=== PATIENT | male | born 1955 | race Caucasian/White ===

== ENCOUNTER 2017-01-11 21:30 | Inpatient (IN) | payer OTHER ==
[~2017-01-11] VITALS: Ht 167.6 cm; Wt 104.0 kg
--- NOTE | 2017-01-11 21:35 | NUR ---
PT BIBA FOR PSYCH EVAL. PT DROVE HIMSELF TO [facility] AND ASKED TO BE TAKEN TO HOSPITAL FOR PSYCH EVAL. PER PEER, PT HELD A KNIFE TO SELF AND SAID HE WANTED TO "END IT ALL". PER PT, HE HAD AN ARGUMENT WITH HIS SISTER EARLIER ETELVINA AND PT SAID HE WAS "TIRED OF LIVING LIKE THIS". PT REPORTS MOVING TO [place] FROM [place] IN FEBRUARY 2016 TO HELP CARE FOR HIS MOTHER AND SISTER. PER PT, MOTHER HAS DEMENTIA AND SISTER IS DISABLED AND HAS NOT BEEN ABLE TO WORK IN 5 YEARS. PT DENIES HI/AH/VH. PT DENIES USING ANY ETOH OR DRUGS.
--- NOTE | 2017-01-11 21:36 | NUR ---
SECURITY AT BEDSIDE FOR WANDING PT CHANGED INTO BLUE SCRUBS
--- NOTE | 2017-01-11 21:40 | NUR ---
DR RYAN AT BEDSIDE
--- NOTE | 2017-01-11 21:41 | NUR ---
PT SHOWED THIS RN AND DR RYAN HIS RIGHT GREAT TOE, WHICH PT STATES "WAS INGROWN THEN I STUBBED IT". PT REPORTS THIS CAUSES HIM PAIN. PT HAS APPOINTMENT TO SEE ASSET MANAGEMENT ANALYST ON FRIDAY.
--- NOTE | 2017-01-11 21:48 | ED PSYCHIATRIC COMPLAINT ---
History of Present Illness General Chief Complaint: Psychiatric Related Complaint Stated Complaint: PSYCH EVAL Source: patient, EMS, police Exam Limitations: no limitations Vital Signs & Intake/Output Vital Signs & Intake/Output Vital Signs Date Time Temp Pulse Resp B/P Pulse O2 O2 Flow FiO2 Ox Delivery Rate 01/12 0828 97.8 82 20 160/89 98 Room Air 01/12 0607 97.7 82 18 161/94 95 Room Air 01/12 0405 97.8 84 18 135/71 96 Room Air 01/12 0347 Room Air 01/11 2317 98.7 100 18 162/89 96 Room Air 01/11 2219 Room Air 01/11 2133 98.2 116 16 157/98 95 Room Air Reconcile Medications Diclofenac Sodium 75 MG TABLET.DR 1 TAB PO BID PAIN (Reported) Lisinopril/Hydrochlorothiazide (Lisinopril-Hctz 10-12.5 MG Tab) 10 MG-12.5 MG TABLET 1 TAB PO DAILY HIGH BLOOD PRESSURE (Reported) Simvastatin (Simvastatin*) 40 MG TABLET 1 TAB PO QPM HYPERCHOLESTEROLEMIA ( Reported) Triage Nurses Notes Reviewed? yes HPI: Patient presents for evaluation of depression and suicide ideation and feeling overwhelmed. The patient states that he moved from [place] to help his sister and his mother. He states that his sister has been simply. She tends to be confrontational and a bit excitable. Patient states that today she was looking for a photo of the [facility] building and he was trying to help her. Unfortunately he scrolled past the photo she was looking for and she became irate. He spoke under his breath which escalated the situation. He now feels that he cannot deal with his situation any longer. According to the police report he held a knife to his chest and claimed he wanted to find a bridge to jump off. He denies any alcohol or drug use. (SHELBY TYLER,CLIFFORD Cárdenas) Allergies Uncoded Allergies: DUST MITE (UNKNOWN 01/12/17) (LAXMI TYLER,DAV Kauffman) Past History Medical History Any Pertinent Medical History? see below for history Surgical History Surgical History: non-contributory Family History Hx Contributory? No (CLIFFORD RYAN MD) Review of Systems Review of Systems Constitutional: Reports: no symptoms. EENTM: Reports: no symptoms. Respiratory: Reports: no symptoms. Cardiovascular: Reports: no symptoms. GI: Reports: no symptoms. Genitourinary: Reports: no symptoms. Musculoskeletal: Reports: no symptoms. Skin: Reports: no symptoms. Neurological/Psychological: Reports: see HPI. Hematologic/Endocrine: Reports: no symptoms. Immunologic/Allergic: Reports: no symptoms. All Other Systems: Reviewed and Negative (CLIFFORD RYAN MD) Physical Exam Physical Exam General Appearance: see below Neurological/Psychiatric: see below Comments: General: Alert, calm, cooperative Head: Normocephalic, atraumatic Eyes: Normal inspection, no nystagmus, EOMI Ears: Normal inspection Nose: Normal inspection Throat: Moist mucosa Neck: Supple, no goiter Heart: Regular rate and rhythm, no murmurs rubs or gallops Lungs: Clear to auscultation bilaterally with good air entry Abdomen: Soft nontender nondistended, normal bowel sounds Chest: Nontender Extremities: Normal range of motion grossly, no tremors present, no cyanosis clubbing or edema of the upper extremities Neurologic: cranial nerves II through XII grossly intact, speech clear, gait normal Psychiatric: No apparent delusions or hallucinations, no pressured speech or thought blocking, depressed affect SAD PERSONS Done? DEFERRED TO CRISIS (SHELBY TYLER,CLIFFORD Cárdenas) Progress Differential Diagnosis: depression, suicide ideation Plan of Care: Orders Procedure Date/time Status Heart Healthy Diet 01/12 B Active Continuous Observation Monitor 01/11 2203 Active URINE DRUG SCREEN FOR ER ONLY 01/11 2203 Complete ED CRISIS PSYCH CONSULT 01/11 2202 Active Laboratory Tests 01/11/17 2200: Urine Opiates Screen < 100.00, Methadone Screen < 40, Barbiturate Screen < 60, Ur Phencyclidine Scrn < 6.00, Amphetamines Screen < 100, U Benzodiazepines Scrn < 85, Urine Cocaine Screen < 50, Urine Cannabis Screen < 5.00 Comments: 01/12/2017 7:29:56 AM patient signed out to Dr. Marquez after an uneventful emergency department stay overnight. (SHELBY TYLER,CLIFFORD Cárdenas) Departure Departure Condition: Stable Referrals: PATIENT HAS NO PRIMARY CARE DR (PCP/Family) Departure Forms: Customer Survey General Discharge Information (CLIFFORD RYAN MD) Departure Disposition: STILL A PATIENT Clinical Impression Primary Impression: Depression Psych Admission Note Psychiatric Admission: I have seen and evaluated HERNANDEZDREA NEGRO. I have also reviewed all the pertinent lab results and diagnostic results. DREA HERNANDEZ will be admitted to our inpatient Psychiatric unit for treatment and care. (LAXMI TYLER,DAV Kauffman)
--- NOTE | 2017-01-11 22:16 | NUR ---
URINE TRIO SENT TO LAB
[2017-01-11] MEDS ORDERED: SIMVASTATIN40 M1 PO (22:17)
[2017-01-11] MEDS ORDERED: LISINOPRIL-HCT1 EAC2 PO (22:18)
[2017-01-11] MEDS ORDERED: DICLOFENAC SODI75 M2 PO (22:19)
--- NOTE | 2017-01-11 22:42 | ED PSY CRISIS COLLATERAL NOTE ---
Collateral Note Collateral Note Family/Inform/Venkatesh Contacts: Crisis spoke to patient's sister Aga Mclean ([phone]). Sister reports that patient is depressed. She reports pt was living in [place], [place] for 25 years and recently moved back in February 2016. Sister recalls that when pt first moved out to [place] that he witnessed someone jump of a railing in the mall and kill him/herself. Sister recalls pt telilng their mother that maybe this is how I should . Sister believes pt has been depressed for 25 years. She reports patient is jaam and he thought his mother didn't accept this which is why he had SI 25 years ago. Sister explained that while growing up and to this day, he is sensitve to sound and often precieves situations differently than others. For example, pierce when she asked him to show her a picture of the [facility] on his Ipad, when he passed a picture she wanted to see she asked him to go back. She reports pt accused her of yelling at him, stormed off, slammed doors and locked himself in the laundry room. She reports when she got in to the laundry room he had a software asset management analyst's knife pointed at his stomach and she was fearful he was going to stab himself. Sister reports pt then left her home in his car speeding off. She reports she called multiple people trying to find him. She reports one person she spoke to told her that the pt confided in her that he had called the suicide hotline number a week ago. Sister reports pt finally answered his cell phone and told her that he was at the police station. Sister reports she called the police station and explained what happened and they called for an ambulance for him to be evaluated in the ED. Sister is very worried for him. She believes he needs to be admitted as he has never acted on his SI. Sister reports she thinks he may have had a psychiatrist in [place] because when she suggested he go see a psychiatrist prior to pierce's incident he said somethign to the effect of "they dont' help". Sister shared that she has many medical issues right now (tumor/ malabsorption, hx of cdiff, lost 90 pounds in 10 months) and that their mother has dementia. Sister underscored that patient struggles with change, is sensitive to noise, needs to finish he thoughts and hates when people interupt him, and gives orders about how things "should" be done.She reports he does attend yazdanism regulary and has a few friends he talks to. He has not worked since he moved back to [place] and she believes his also impacts his mood. Sister is worried for pt. Sister believes pt would benefit from inpatient hospitalization. Sister would like a call back in the morning.
--- NOTE | 2017-01-11 22:48 | NUR ---
Crisis spoke to pt sister. See collateral notes
--- NOTE | 2017-01-11 22:49 | NUR ---
Crisis informed pt that he would not be evaluated until the morning multifocal lens inspector came in. Pt requested that the lights be left on at all time. Pt requested something to help him sleep as he reports he will be up all night crying and will be uncomfortable on the bed in the ED. Pt informed sitter of request regarding light and will communicate his request about medication to MD.
--- NOTE | 2017-01-11 23:01 | NUR ---
PT MEDICATED WITH AMBIEN 5MG FOR SLEEP. PT REQUESTS THAT THE LIGHTS REMAIN ON. PT CALM AND COOPERATIVE. TEARFUL.
--- NOTE | 2017-01-11 23:17 | NUR ---
RECIEVED REPORT FROM HERMINIO CLAYTON. PT SITTING ON STRETCHER IN ROOM WITH LIGHTS ON PER REQUEST. DENIES ANY NEEDS AT THIS TIME. SITTER IN DOORWAY.
--- NOTE | 2017-01-12 01:22 | NUR ---
PT SLEEPING WITH REGULAR RR AND LIGHTS REMAIN ON IN ROOM PER PT REQUEST. SITTER IN DOORWAY.
--- NOTE | 2017-01-12 02:30 | NUR ---
PT SITTING AWAKE ON STRETCHER. PROVIDED WITH WATER. SITTER IN DOORWAY.
--- NOTE | 2017-01-12 04:02 | NUR ---
PT REMAINS LYING ON STRETCHER AWAKE. STATES "I HAVEN'T SLEPT MUCH IN 10 WEEKS WITH ALL THE STRESS GOING ON." ASKED PT IF HE WOULD LIKE AN EXTRA BLANKET AND THE LIGHTS TURNED OFF FOR COMFORT. PT WISHES FOR LIGHTS TO REMAIN ON AND SO THEY ARE. PT DENIES ANY OTHER NEEDS AT THIS TIME. VSS. SITTER REMAINS IN DOORWAY. WILL CTM.
--- NOTE | 2017-01-12 05:22 | NUR ---
PT CONTINUES TO LAY ON STRETCHER AWAKE. CALM AND COOPERATIVE. DENIES ANY NEEDS. SITTER IN DOORWAY.
--- NOTE | 2017-01-12 07:35 | NUR ---
ASSUMED CARE OF PT AT THIS TIME. PT STATING THAT HE NEEDS HIS METAMUCIL AND VOLTARAN FOR THE PAIN IN HIS HANDS. MD AWARE.
--- NOTE | 2017-01-12 08:08 | NUR ---
[facility]ITA CALLED FOR MEDS AT THIS TIME. CRISIS AT BEDSIDE FOR GILAL
--- NOTE | 2017-01-12 08:25 | NUR ---
PT MEDICATED PER EMAR AT THISTIME.
--- NOTE | 2017-01-12 09:46 | ED PSYCH CRISIS CONSULTATION ---
Crisis Consult Basic Assessment Date of Consult: 01/12/17 Responsible Person/Accompanied By: self Insurance Authorization: Insurance #1: Insurance name: JORGE FELIPE Phone number: Policy number: [id number] Group number: Authorization number: ED Provider: Patient's ED Provider: CLIFFORD RYAN MD Primary Care Physician: Patient's PCP: PATIENT HAS NO PRIMARY CARE DR PCP's Phone Number: Chief Complaint: Psychiatric Related Complaint Patient's Quote: "I want to kill myself, I cannot go on like this anymore." Present Illness: The pt is a 61yo single male BIBA from the [place] police dept for SI. The pt drove himself to the police dept after arguing with his sister and holding a knife to his chest. The PEER documents the pt stated to the police he wanted to end it all and find a bridge to jump off. During this assessment the pt presented tearful, alert, oriented, and cooperative with goal directed speech. The pt reports I want to kill myself, I cannot go on like this anymore. The pt also stated my father is the osorio one. The pt stated that after an argument with his sister he thought of suicide and held a knife to his stomach. The pt reports he dropped the knife and drove to the police station for help. The pt stated he has numerous stressors and no support. The pt denies HI, AH, VH and paranoia. The pt stated he experienced thoughts of suicide in the past but never acted on those thoughts. The pt stated significant deaths in the family have triggerred past SI. The pt reports difficulty sleeping over the past 10 months and that he sleeps about 6 hours per night. The pt reports a decrease in appetite when he is stressed. The pt denies any drug and alcohol use, his toxicology screen is negative. The pt denies any prior psychiatric hospitalizations. The pt reports his only outpatient treatment was 6 sessions through [facility] in 2000 after his cousins . The pt reports he lived in [place] for 25 years and moved back to [place] 02/2016 to help his sister and mother. The pt reports he lives in his own apartment about 1 mile from his sister and mother. The pt reports his mother has dementia and his sister has numerous disabling conditions. 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 The pt reports he is helpful to his mother but his sister is verbally abusive to him. The pt reports his father in [place] 11/2016. The pt reports since he was born in [place] he moved to the following places: [place], [place], [place], back to [place], [place], [facility] and then [place] for 25 years. The Crisis Collateral note (see collateral 01/11/17 Collateral note)documents a phone call to the pts sister who stated that during an argument with the sister the pt locked himself in the laundry room. The sister entered the laundry room and saw the pt holding a knife pointed at his stomach. Sister reports she was fearful the pt was going to stab himself. Sister reports pt then left her home in his car speeding off. Discussed the pts presentation with Dr. Stern, the plan is for hospitalization. The pt is in agreement with this plan, is a voluntary admission and signed the [facility] Pt Guidelines. Patient's Address: [address] [place] [address] Other Phone Number: Who Do You Live With? Patient/Self Family/Informants Interviewed: Crisis spoke by phone with the pt's sister, see collateral note. Allergies - Uncoded Allergies: DUST MITE (UNKNOWN 01/12/17) Current Medications - Scheduled Medications Diclofenac Sodium 75 MG TABLET. 1 TAB PO BID PAIN #30 (Reported) Entered as Reported by TAYLOR ALDRIDGE on 01/11/17 221 Lisinopril/Hydrochlorothiazide (Lisinopril-Hctz 10-12.5 MG Tab) 10 MG-12.5 MG TABLET 1 TAB PO DAILY HIGH BLOOD PRESSURE #30 (Reported) Entered as Reported by TAYLOR ALDRIDGE on 01/11/17 221 Simvastatin (Simvastatin*) 40 MG TABLET 1 TAB PO QPM HYPERCHOLESTEROLEMIA #30 (Reported) Entered as Reported by TAYLOR ALDRIDGE on 01/11/17 221 Laboratory Results: Laboratory Tests 01/11/170: Urine Opiates Screen < 100.00, Methadone Screen < 40, Barbiturate Screen < 60, Ur Phencyclidine Scrn < 6.00, Amphetamines Screen < 100, U Benzodiazepines Scrn < 85, Urine Cocaine Screen < 50, Urine Cannabis Screen < 5.00 Past History Past Medical History Neurological: NONE EENT: NONE Cardiovascular: HYPERTENSION HYPERLIPIDEMIA Respiratory: NONE Gastrointestinal: NONE Hepatic: NONE Renal: NONE Musculoskeletal: NONE Psychiatric: NONE Endocrine: PSORIASIS Past Surgical History Surgical History: non-contributory Psychosocial History Strengths/Capabilities: able to articulate needs, prior periods of minimal mood related problems. Physical Limitations (Interventions): psoriatic arthiritis Psychiatric Treatment History Psych Treatment Psychiatric Treatment Yes Inpatient Treatment No Outpatient Treatment Yes Location of Treatment [facility] in [place] Reason for Treatment grief over of cousin Dates of Treatment 6 sessions in 2000 Response to Treatment pt reports positive response Diagnosis by History: n/a Substance Use/Abuse History Drug Use/Abuse Substances Used/Abused No Substance Abuse Treatment Substance Abuse Treatment Past Substance Abuse [place] No Current Mental Status Mental Status Orientation: Person, Place, Situation Affect: Anxious, Sad Speech: WNL Neuro-vegetative: Loss of Interest, Sleep Disturbance Appearance Appearance- Dress/Hygiene: appropriate Behaviors Thought Process: WNL Thought Content: WNL Memory: WNL Insight: Fair SI/HI Risk Assessment Past Suicidal Ideation/Attempts Yes Current Suicidal Ideation/Att Yes Past Homicidal Ideation/Att: No Current Homicidal Ideation/Attempts No Degree of Intent: Made Preparations, Plan Danger To: Self Risk Factors: access to lethal means, high anxiety/distress, isolate/no social support, lack of outcome concern, lives alone, male Lethality Ratin PTSD Checklist PTSD Done? patient declined ED Management Sitter: Yes Restraints: No DSM5/PS Stressors/Medical Prob Diagnosis' (DSM 5, Stressors, Medical): F32.9 Unspecified Depressive Disorder Psoriasis Psoriatic Arthritis Current GAF: 28 Departure Disposition Psych Medical Clearance Date: 01/12/17 Medically Cleared at: 0800 Time Started: 0800 Time Ended: 0835 Psychiatrist Consulted: Dr. Stern Date Disposition Established: 01/12/17 Time Disposition Established: 929 Plan for Disposition - Modality: Inpatient Psychiatry Facility: Rationale for Disposition: Pt is in need of hospitalization for safety. Type of IP Admission: Voluntary Referrals PATIENT HAS NO PRIMARY CARE DR (PCP/Family)
--- NOTE | 2017-01-12 09:49 | NUR ---
CRISIS AT BEDSIDE AT THIS TIME
--- NOTE | 2017-01-12 10:18 | IP CRISIS DIAG ASSESS PSYCH ---
See Addendum Diagnostic Assessment Basic Assessment Insurance Authorization: Insurance #1: Insurance name: JORGE FELIPE Phone number: Policy number: [id number] Group number: Authorization number: Primary Care Physician: Patient's PCP: PATIENT HAS NO PRIMARY CARE DR PCP's Phone Number: Patient's Quote: "I want to kill myself, I cannot go onlike this anymore." Present Illness: The pt is a 61yo single male BIBA from the [place] police dept for SI. The pt drove himself to the police dept after arguing with his sister and holding a knife to his chest. The PEER documents the pt stated to the police he wanted to end it all and find a bridge to jump off. During this assessment the pt presented tearful, alert, oriented, and cooperative with goal directed speech. The pt reports I want to kill myself, I cannot go on like this anymore. The pt also stated my father is the osorio one. The pt stated that after an argument with his sister he thought of suicide and held a knife to his stomach. The pt reports he dropped the knife and drove to the police station for help. The pt stated he has numerous stressors and no support. The pt denies HI, AH, VH and paranoia. The pt stated he experienced thoughts of suicide in the past but never acted on those thoughts. The pt stated significant deaths in the family have triggerred past SI. The pt reports difficulty sleeping over the past 10 months and that he sleeps about 6 hours per night. The pt reports a decrease in appetite when he is stressed. The pt denies any drug and alcohol use, his toxicology screen is negative. The pt denies any prior psychiatric hospitalizations. The pt reports his only outpatient treatment was 6 sessions through [facility] in 2000 after his cousins . The pt reports he lived in [place] for 25 years and moved back to [place] 02/2016 to help his sister and mother. The pt reports he lives in his own apartment about 1 mile from his sister and mother. The pt reports his mother has dementia and his sister has numerous disabling conditions. 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 The pt reports he is helpful to his mother but his sister is verbally abusive to him. The pt reports his father in [place] 11/2016. The pt reports since he was born in [place] he moved to the following places: [place], [place], [place], back to [place], [place], [facility] and then [place] for 25 years. The Crisis Collateral note (see collateral 01/11/17 Collateral note)documents a phone call to the pts sister who stated that during an argument with the sister the pt locked himself in the laundry room. The sister entered the laundry room and saw the pt holding a knife pointed at his stomach. Sister reports she was fearful the pt was going to stab himself. Sister reports pt then left her home in his car speeding off. Discussed the pts presentation with Dr. Stern, the plan is for hospitalization. The pt is in agreement with this plan, is a voluntary admission and signed the [facility] Pt Guidelines. Patient's Address: [address] [place] [address] [address] [place] [address] Other Phone Number: Who Do You Live With? Patient/Self Feel Safe Where You Live? Yes Marital Status: single Do You Have Children? No Primary Language? Dutch Language(s) Spoken At Home: Dutch Family/Informants Interviewed: Crisis spoke by phone with the pt's sister, see collateral note. Allergies - Uncoded Allergies: DUST MITE (UNKNOWN 01/12/17) Current Medications - Scheduled Medications Diclofenac Sodium 75 MG TABLET. 1 TAB PO BID PAIN #30 (Reported) Entered as Reported by TAYLOR ALDRIDGE on 01/11/17 221 Lisinopril/Hydrochlorothiazide (Lisinopril-Hctz 10-12.5 MG Tab) 10 MG-12.5 MG TABLET 1 TAB PO DAILY HIGH BLOOD PRESSURE #30 (Reported) Entered as Reported by TAYLOR ALDRIDGE on 01/11/17 221 Simvastatin (Simvastatin*) 40 MG TABLET 1 TAB PO QPM HYPERCHOLESTEROLEMIA #30 (Reported) Entered as Reported by TAYLOR ALDRIDGE on 01/11/172216 Consequences of Psych Med Use: n/a Lab Results: Laboratory Tests 01/11/17 2200: Urine Opiates Screen < 100.00, Methadone Screen < 40, Barbiturate Screen < 60, Ur Phencyclidine Scrn < 6.00, Amphetamines Screen < 100, U Benzodiazepines Scrn < 85, Urine Cocaine Screen < 50, Urine Cannabis Screen < 5.00 Toxicology Screen Completed? Yes Results: negative Symptoms of Use: n/a Past History Past Medical History Medical History: psoriasis, psoriatic arthiritis Past Surgical History Surgical History none Abuse/Trauma History Trauma History/Current Trauma: Denies History of Trauma/Abuse Treatment? No Abuse/Trauma Treatment: n/a Legal History Current Legal Status: none Have you ever been arrested? No Number of Arrests: 0 Psychosocial History Strengths/Capabilities: able to articulate needs, prior periods of minimal mood related problems. Physical Limitations (Interventions): psoriatic arthiritis Psychiatric Treatment History Psych Treatment Psychiatric Treatment Yes Inpatient Treatment No Outpatient Treatment Yes Location of Treatment [facility] in [place] Reason for Treatment grief over of cousin Dates of Treatment 6 sessions in 2000 Response to Treatment pt reports positive response Diagnosis by History: n/a Risk Factors: access to lethal means, high anxiety/distress, isolate/no social support, lack of outcome concern, lives alone, male Substance Use/Abuse History Drug Use/Abuse minimum 12mo Hx Substances Used/Abused No Substance Abuse Treatment Substance Abuse Treatment Past Substance Abuse [place] No Education History Highest Level of Education: bachelor's degree Preferred Learning Style: visual, auditory Current Mental Status Mental Status Orientation: Person, Place, Situation Affect: Anxious, Sad Speech: WNL Neuro-vegetative: Loss of Interest, Sleep Disturbance Appearance Appearance- Dress/Hygiene: appropriate Behaviors Thought Process: WNL Thought Content: WNL Memory: WNL Insight: Fair SI/HI Risk Assessment - Minimum 6mo History- Past Suicidal Ideation/Attempts Yes Current Suicidal Ideation/Att Yes Past Homicidal Ideation/Att: No Current Homicidal Ideation/Attempts No Degree of Intent: Made Preparations, Plan Danger To: Self Risk Factors: access to lethal means, high anxiety/distress, isolate/no social support, lack of outcome concern, lives alone, male Lethality Ratin Needs/Init TX Plan/Goals: Monitor mental status and safety. Participate in individual, group and milieu therapy. Participate in medication evaluation. AUDIT-C Questionnaire: AUDIT-C Questionnaire: Response Value ETOH use in the past year Never 0 Total 0 DSM5/PS Stressors/Medical Prob Diagnosis' (DSM 5, Stressors, Medical): F32.9 Unspecified Depressive Disorder Psoriasis Psoriatic Arthritis Current GAF: 28
--- NOTE | 2017-01-12 10:25 | NUR ---
CPS RN WILL CALL BACK FOR REPORT.
--- NOTE | 2017-01-12 10:40 | NUR ---
REPORT GIVEN TO STACIE DURHAM IN CPS. INFORMED PT HAS 1 VALUABLES BAG WITH SECURITY, 1 VALUABLES BAG SENT WITH HIM TO CPS AND 2 BELONGINGS BAGS.
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
[2017-01-12 12:15] VITALS: BP 154/92
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
[2017-01-12 16:27] VITALS: BP 153/90
--- NOTE | 2017-01-12 16:58 | History & Physical ---
General Information and HPI History of Present Illness: Patient is a 61-year-old male with medical history significant for hypertension, dyslipidemia and psoriasis. He moved to [place] from [place] to be with family. However due to stress from family he feels like he is unable to cope and came to seek help. He reports that a few days ago he stumped his right big toe. He reports some pain at the site. He reports that his plan was to see the health science writer as an outpatient. Denies chest pain or shortness of breath. Denies palpitations. Denies cough. Denies nausea vomiting. Denies diarrhea. Denies abdominal pain. Denies black or bloody stools. Denies heat or cold intolerance. All other 12 point review of systems noncontributory except as reported above. Allergies/Medications Allergies: Uncoded Allergies: DUST MITE (UNKNOWN 01/12/17) Home Med list Aripiprazole (Abilify) 5 MG TABLET 5 MG PO 2000 mood stability/clear thoughts Take 1 tablet by mouth every night. Atorvastatin Calcium 40 MG TABLET 1 TAB PO 1700 High cholesterol Take 1 tablet by mouth every night. Clobetasol Propionate (Temovate) 0.05 % CREAM..G. 1 SUZY TOP BID rash apply to affected area(s) Diclofenac Sodium 75 MG TABLET.DR 75 MG PO 0800,2000 Pain Take 1 tablet by mouth twice daily. Fluoxetine HCl 10 MG CAPSULE 10 MG PO DAILY depression/anxiety Take 1 capsule by mouth every morning. Fluticasone Propionate 50 MCG/ACTUATION SPRAY.SUSP 2 SPRAY WIL 0800 allergies Take 2 sprays insufflation daily. Hydrochlorothiazide 12.5 MG CAPSULE 12.5 MG PO 0800 HIGH BLOOD PRESSURE Take 1 capsule by mouth daily. Hydrocortisone 1 % CREAM..G. 1 SUZY TOP BID rash APPLY BID TO RASH (PSORIASIS) Lisinopril 10 MG TABLET 10 MG PO 0800 HIGH BLOOD PRESSURE Take 1 tablet by mouth daily. Psyllium Hydrophy Sugar Free (Metamucil Fiber Singles Packet) 3.4 GRAM POWD.PACK 1 PAC PO QPM bowel support Past History Travel History Traveled to [place] past 21 day No Medical History Blood Transfusion Hx: No Neurological: NONE EENT: NONE Cardiovascular: HYPERTENSION HYPERLIPIDEMIA Respiratory: NONE Gastrointestinal: NONE Hepatic: NONE Renal: NONE Musculoskeletal: NONE Psychiatric: depression Endocrine: PSORIASIS History of MRSA: No History of VRE: No History of CDIFF: No Isolation History: Standard Influenza Vaccine: 08/17/16 Surgical History Surgical History: lithotripsy. Sinus surgery. Past Family/Social History Family History Relations & Conditions if any SISTER Relation not specified for: FHx: coronary artery disease FHx: diabetes mellitus Stroke Psychosocial History Where do you live? Home Review of Systems Review of Systems Constitutional: Denies: see HPI. Exam & Diagnostic Data Last 24 Hrs of Vital Signs/I&O Vital Signs Date Time Temp Pulse Resp B/P Pulse O2 O2 Flow FiO2 Ox Delivery Rate 01/12 1627 89 153/90 01/12 1215 96.7 86 154/92 01/12 1012 97.8 87 20 160/88 97 Room Air 01/12 0828 97.8 82 20 160/89 98 Room Air 01/12 0607 97.7 82 18 161/94 95 Room Air 01/12 0405 97.8 84 18 135/71 96 Room Air 01/12 0347 Room Air 01/11 2317 98.7 100 18 162/89 96 Room Air 01/11 2219 Room Air 01/11 2133 98.2 116 16 157/98 95 Room Air Intake & Output 01/12 1600 01/12 0800 01/12 0000 Intake Total Output Total Balance Patient 104.043 kg Weight Physical Exam General Appearance Alert, Oriented X3, Cooperative Skin No Rashes, No Breakdown HEENT Atraumatic, PERRLA, EOMI, Mucous Membr. moist/pink Neck Supple, No JVD, No thryomegaly, +2 Carotid Pulse wo Bruit Cardiovascular Regular Rate, Normal S1, Normal S2, No Murmurs Lungs Clear to Auscultation, Normal Air Movement Abdomen Normal Bowel Sounds, Soft, No Tenderness, No Hepatospenomegaly Neurological Exam Findings: Normal Gait, Normal Speech, Strength at 5/5 X4 Ext, Cranial Nerves 3-12 NL Cranial Nerves II through XII: WNL Extremities No Clubbing, mild inflammation right big toe. Mild tenderness. No erythema. No discharge. No open areas. Last 24 Hrs of Labs/David: Laboratory Tests 01/11/17 2200: Urine Opiates Screen < 100.00, Methadone Screen < 40, Barbiturate Screen < 60, Ur Phencyclidine Scrn < 6.00, Amphetamines Screen < 100, U Benzodiazepines Scrn < 85, Urine Cocaine Screen < 50, Urine Cannabis Screen < 5.00 Assessment/Plan Assessment: Problems: Depression. Right big toe trauma. Hypertension. Dyslipidemia. Recommendations: -Continue his routine blood pressure and cholesterol medications. -Recommend evaluation of his toe by the podiatry service. - As Ranked By This Provider Problem List: 1. Depression Miscellaneous Miscellaneous Documentation Attending Case Discussed With: RUDI TYLER,SHA Chu Primary Care Physician: PATIENT HAS NO PRIMARY CARE DR Patient sees these Specialists None. Level of Patient Care: Piyush Consults Needed: Consulting Specialty: Podiatry
[2017-01-12 19:52] VITALS: BP 149/92
--- NOTE | 2017-01-12 22:52 | NUR ---
PT IS COOPERATVIE WITH STAFF AND PEERS, ISOLATIVE AND WITHDRAWN, SPENDING THE VAST MAJORITY OF TIME IN PT ROOM, OUT OF MILIEU. PT MOOD IS STABLE, AFFECT IS CONSTRICTED, SEEMS ANXIOUS, PRESENTS PARANOID AND DELUSIONAL. PT COMMUNICATION IS NORMAL, THOUGH SPARSE, AND APPETITE IS NORMAL. PT DENIES SI AT THIS TIME.
--- NOTE | 2017-01-13 04:50 | NUR ---
SLEPT ON AND OFF.
[2017-01-13 07:39] VITALS: BP 148/97
[2017-01-13 08:00] LABS: ABSOLUTE BASOPHIL COUNT 0 /CUMM (0.0-0.2); ABSOLUTE EOSINOPHIL COUNT 0.1 /CUMM (0.0-0.7); ABSOLUTE GRANULOCYTE CT 5.9 /CUMM (1.4-6.5); ABSOLUTE LYMPH COUNT 1.4 /CUMM (1.2-3.4); ABSOLUTE MONOCYTE COUNT 0.6 /CUMM (0.10-0.60); BASOPHIL % 0.4 % (0.0-2.0); EOSINOPHIL % 1.7 % (0-5); GRANULOCYTE % 73.6 % (42.2-75.2); HEMATOCRIT 44.1 % (42-52); MEAN CORPUSCULAR HGB 29.1 PG (27.0-31.0); MEAN CORPUSCULAR HGB CONC 33.2 G/DL (33.0-37.0); MEAN CORPUSCULAR VOLUME 87.5 FL (80.0-94.0); MEAN PLATELET VOLUME 8.2 FL (7.4-10.4); PLATELET COUNT 254 /CUMM (130-400); RBC DISTRIBUTION WIDTH 13.8 % (11.5-14.5); RED BLOOD CELL CT 5.04 /CUMM (4.70-6.10); WHITE BLOOD CELL COUNT 8.1 /CUMM (4.8-10.8)
--- NOTE | 2017-01-13 10:16 | SOCIAL WORKER SOCIAL HX PSYCH ---
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 Belarusian Language(s) Spoken At Home: Bel[place]ian Living Situation Rents or Owns Home? rents Feel Safe Where You Are Living Yes Feel Safe in Relationships? Yes Comments: currently single, is taking care of his sister he feels safe but feels like he walks on eggs shells around her, she can be very sweet, and then zurita. Mother has dementia. Allergies - Uncoded Allergies: DUST MITE (UNKNOWN 01/12/17) Current Medications - Scheduled Medications Diclofenac Sodium 75 MG TABLET.DR 1 TAB PO BID PAIN #30 (Reported) Entered as Reported by TAYLOR ALDRIDGE on 01/11/17 2219 Lisinopril/Hydrochlorothiazide (Lisinopril-Hctz 10-12.5 MG Tab) 10 MG-12.5 MG TABLET 1 TAB PO DAILY HIGH BLOOD PRESSURE #30 (Reported) Entered as Reported by TAYLOR ALDRIDGE on 01/11/17 2218 Simvastatin (Simvastatin*) 40 MG TABLET 1 TAB PO QPM HYPERCHOLESTEROLEMIA #30 (Reported) Entered as Reported by TAYLOR ALDRIDGE on 01/11/17 2217 Past History Past Medical History Neurological: NONE EENT: NONE Cardiovascular: HYPERTENSION HYPERLIPIDEMIA Respiratory: NONE Gastrointestinal: NONE Hepatic: NONE Renal: NONE Musculoskeletal: NONE Psychiatric: depression Endocrine: PSORIASIS Past Surgical History Surgical History: lithotripsy. Sinus surgery. /Family History Place/Country of Origin: [facility] Childhood Family Constellation: parents Maternal grandparents and sister Primary Childhood Caretakers: father, mother Family Life During Childhood: "fine" DCF Involvement? No Mother's Age (Current/): 88 Relationship w/Mother: She has dementia, and he is here to help take care of her. They have an "Ok" relationship Father's Age (Current/): 89 Relationship w/Father: in November 2016, "I miss him terribly" Any Sibling(s)? Yes Sibling's Gender(s)/Age(s): female Sibling 1: Relationship w/Sibling(s): she is 55 years old, and having trouble managing her medical conditions, and she is on a lot of pain medication, and "falls a lot". Relationship w/Friends: limited friendships here, only the neighbors at his Mother he has known for over 40 years. Other Comments: denies Abuse/Trauma History Trauma History/Current Trauma: Denies History of Trauma/Abuse Treatment? No Abuse/Trauma Treatment: n/a Legal History Current Legal Status: none Have you ever been arrested No Number of Arrests: 0 Psychosocial History Primary Support System: sibling(s) Strengths/Capabilities: able to articulate needs, prior periods of minimal mood related problems. Weaknesses: is taking some time to adjust to living back in [place] after 25 years in [place], he is the only one capable of caregiving, and it is a struggle. Physical Limitations (Interventions): psoriatic arthiritis Last Physical: last week History of Seizures? No History of Blackouts? No ADL Limitations: denies, although he mentions his toenail is falling off and would like someone to take care of it. 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 I like to cook and eat out, and design things. Childhood Restorationism: Taoism Current Congregational Affiliation: Taoism Is Spirituality Important to You? yes Patient's Ethnicity: Japanese Cultural/Ethnic Issues: denies Are There Developmental Issues? No Milestones Achieved: fine motor, gross motor Psychiatric Treatment History Psych Treatment Inpatient Treatment No Outpatient Treatment Yes Location of Treatment [facility] in [place] Reason for Treatment grief over of cousin Dates of Treatment 6 sessions in 2000 Response to Treatment pt reports positive response Diagnosis: n/a Risk Factors: access to lethal means, high anxiety/distress, isolate/no social support, lack of outcome concern, lives alone, male Substance Use/Abuse History Drug Use/Abuse Substance Used/Abused No History Explain: n/a no hx Explain: n/a no hx Symptoms of Use: n/a Substance Abuse Treatment Substance Abuse Treatment Inpatient Treatment No Sexual History Sexually Active No # of partners 0 Sexual Concerns: denies Education History Highest Level of Education: bachelor's degree Number of College Years: 4 College Degree/Major: geography Preferred Learning Style: visual, auditory HX of Learning Difficulties: None reported Barriers to Learning: None reported Special Communication Needs: None reported Employment History Employment Unemployed Not in Labor Force: will return to work, once he adjusts to caregiving role and can make more time No. of Jobs in Last 5 Years: 1 Attendance: Normal Performance: Good History Have You Been in The ? Yes If Yes, Explain: 4 years in the 70's Type of Discharge: Honorable Current Mental Status Mental Status Orientation: Person, Place, Situation Affect: Anxious, Sad Speech: WNL Neuro-vegetative: Loss of Interest, Sleep Disturbance Appearance Appearance- Dress/Hygiene: appropriate Behaviors Thought Process: WNL Thought Content: WNL Memory: WNL Insight: Fair SI/HI Risk Assessment Past Suicidal Ideation/Attempts Yes Current Suicidal Ideation/Att Yes Past Homicidal Ideation/Att: No Current Homicidal Ideation/Attempts No Degree of Intent: Made Preparations, Plan Danger To: Self Lethality Ratin - Conclusion and Recommendations for treatment - and discharge planning
--- NOTE | 2017-01-13 10:16 | SOCIAL WORKER PROG NOTE PSYCH ---
Social Work Progress Note Progress Note Pt presented as anxious, engaged and having some trouble with adjusting, as there have been so many changes in his life recently. He moved back to [place] to take care of his sister and Mother. "I'm having trouble with understanding they way people talk here, everyone talks so fast". He also reports his sister is on so many medicines she is confused and falls down a lot, he is concerned for her safety. He is grieving the loss of his Father who in November 2016. His Mother has dementia. Pt appears capabale and eager to get organized. He was cooperative during the evaluation.
[2017-01-13 12:31] VITALS: BP 153/96
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
--- NOTE | 2017-01-13 13:53 | NUR ---
PT HAS BEEN VISIBLE IN THE [place] TODAY. HE HAS BEEN ATTENDING GROUPS AND HAVING POSITIVE INTERACTIONS WITH HIS PEERS. IN THE [place] PT HAS BEEN COMPLIANT AND FOLLOWING THE RULES OF THE UNIT. PT DENIES THOUGHTS OF HURTING SELF.
[2017-01-13 15:51] VITALS: BP 152/94
--- NOTE | 2017-01-13 17:49 | Cons- Podiatry ---
General Information and HPI Consulting Request Date of Consult: 01/13/17 Requested By: CAREN COSTELLO MD History of Present Illness: Praful is a 61-year-old male who was admitted for a depressive disorder and was noted to complain of right great toe pain. The patient admits to a trauma partially 68 weeks ago while in [place], involving a stubbing injury to a table leg. The patient noted to work and discoloration to the nail bed. The patient denies any acute signs of infection. Minimal pain associated with the lesion. Allergies/Medications Allergies: Uncoded Allergies: DUST MITE (UNKNOWN 01/12/17) Home Med List: Diclofenac Sodium 75 MG TABLET.DR 1 TAB PO BID PAIN (Reported) Lisinopril/Hydrochlorothiazide (Lisinopril-Hctz 10-12.5 MG Tab) 10 MG-12.5 MG TABLET 1 TAB PO DAILY HIGH BLOOD PRESSURE (Reported) Simvastatin (Simvastatin*) 40 MG TABLET 1 TAB PO QPM HYPERCHOLESTEROLEMIA ( Reported) Past History Medical History Blood Transfusion Hx: No Neurological: NONE EENT: NONE Cardiovascular: HYPERTENSION HYPERLIPIDEMIA Respiratory: NONE Gastrointestinal: NONE Hepatic: NONE Renal: NONE Musculoskeletal: NONE Psychiatric: depression Endocrine: PSORIASIS Surgical History Pertinent Surgical History: lithotripsy. Sinus surgery. Family History Relations & Conditions If Any: SISTER Relation not specified for: FHx: coronary artery disease FHx: diabetes mellitus Stroke Psychosocial History Where Do You Live? Home Employment History Employment: Unemployed Review of Systems Review of Systems: Unremarkable except for that noted history of present illness Exam & Diagnostic Data Vital Signs and I&O Vital Signs Date Time Temp Pulse Resp B/P Pulse O2 O2 Flow FiO2 Ox Delivery Rate 01/13 1551 104 152/94 01/13 1545 100 152/94 01/13 1231 96 153/96 01/13 0739 98.9 95 148/97 01/12 1952 98.3 99 149/92 Intake & Output 01/13 1600 01/13 0800 01/13 0000 01/12 1600 01/12 0800 01/12 0000 Intake Total Output Total Balance Patient 229 lb Weight Physical Exam: Patient is neurovascularly intact bilaterally. Patient noted to have a near total avulsion of his right great toenail plate with dried subungual hematoma. The nail plate is adherent at the proximal medial corner of the nailbed. Noted active drainage identified. No pain with palpation. Rations identified. Assessment/Plan Assessment/Plan Traumatic nail avulsion right great toe. Completion of the avulsion performed at bedside and redressed with a Band-Aid. Recommend Band-Aid changes for the next week. Patient may follow-up with me as an outpatient Consult Acknowledgment - Thank you for your consult request. Attending MD Review Statement Attending Statement Attending MD Statement: examined this patient
--- NOTE | 2017-01-13 17:55 | NUR ---
Dr. Silva was on unit and saw patients toenail. He removed nail and covered with a bandaid. Patient advised to keep dry and covered for about 3 days and follow up with Dr. Silva or his own lead project engineer after discharge.
[2017-01-13 19:40] VITALS: BP 148/79
--- NOTE | 2017-01-13 21:07 | NUR ---
PT IS ISOLATIVE AND WITHDRAWN, IN [place], THOUGH MOSTLY STAYING TO SELF. PT WILL COMMUNICATE WITH DIRECTLY ENGAGED, THEREFORE INTERACTING MORE GREATLY WITH STAFF THEN WITH PEERS. PT APPEARS SLIGHTLY ANXIOUS. MOOD IS STABLE, AFFECT IS SLIGHTLY CONSTRICTED TO FULL RANGE, COMMUNICATION IS SPARSE, BUT NORMAL, AND APPETITE IS NORMAL. PT DENIES SI AT THIS TIME.
--- NOTE | 2017-01-14 04:40 | NUR ---
PT UP X 1 TO BR- RETURNED TO BED IMMEDIATELY. PT APPEARED TO SLEEP THRU NIGHT.
[2017-01-14 07:39] VITALS: BP 130/79
--- NOTE | 2017-01-14 09:02 | CP SOUTH PROGRESS NOTE PSYCH ---
Psych (Inpt) Progress Note Progress Note Include the following elements, when applicable: Involvement in the active treatment of the patient with behavioral observations of the patient and the patient's response to the treatment. Review of the ongoing treatment process in the context of the treatment plan. Indication of how multi-disciplinary staff members are carrying out the treatment plan. Plans for future interventions and recommendations for revision of the treatment plan. Liaison with other physicians/providers. Progress Note: [I discussed this patient's progress to date, current mental status, treatment process in the context of the treatment plan, and discharge planning with staff/ team in the daily morning inpatient team meeting. I also met with the patient myself in individual session.] SUBJECTIVE: "I feel fine." OBJECTIVE: Current Medications Sig/[place] Start time Last Medication Dose Route Stop Time Status Admin Aripiprazole 5 MG 01/13 PO 1950 Atorvastatin Calcium 40 MG 1700 01/13 1700 AC 01/13 PO 1546 Diclofenac Sodium 75 MG 799,01/14 AC PO Fluoxetine HCl 10 MG DAILY 01/12 1338 AC 01/14 PO 0809 Fluticasone 2 SPRAY 01/14 1315 AC 01/14 Propionate WIL 1438 Hydrochlorothiazide 12.5 MG 01/14 0800 AC 01/14 PO 0809 Hydroxyzine HCl 25 MG Q6PRN PRN 01/12 1045 AC PO Lisinopril 10 MG 01/14 0800 AC 01/14 PO 0809 Psyllium Hydrophilic 1 PAC QPM 01/14 2200 AC Mucilloid PO Psyllium Hydrophilic 1 PAC 00 01/14 0800 DC Mucilloid PO Trazodone HCl 50 MG AT BEDTIME NEED.. 01/12 2200 AC PO Vital Signs Date Time Temp Pulse Resp B/P Pulse O2 O2 Flow FiO2 Ox Delivery Rate 01/14 0809 97.5 86 20 130/79 01/14 0739 97.5 86 130/79 01/13 1940 98.6 96 148/79 01/13 1551 104 152/94 01/13 1545 100 152/94 01/13 1231 96 153/96 ASSESSMENT: Chart, progress notes, VS, labs, EKG, podiatry consult and medication list were reviewed. Patient's BP improving since restarting antihypertensives. Met with patient today, together with Jina Berry LCSW. Patient presented A&Ox3. Speech remained slightly rapid. Eye contact was appropriate. Mood was "fine." Affect was mostly constricted. Reported sleep and appetite were good. Patient reported depression of 0/10 (10 being the worst) and anxiety of 0/10 (10 being the worst). He denied feeling hopeless, helpless, worthless, or guilty. He perseverated on stressed relationship with his sister, and processed with this caption writer ways to better respond to his sister's "difficult moments." Patient identified that one way he can manage his sister's behavior in the future is by walking away to take space. He denied active and passive suicidal ideation, plans and intent. He denied homicidal ideation. He denied auditory and visual hallucinations. There was no evidence of manic/hypomanic symptoms. There was no evidence of paranoia or delusions. At times, patient thoughts appeared to be ruminative. Thought process was goal-directed. Thought content was mostly appropriate. Cognition was grossly intact. Reviewed [facility] program with patient. Patient was agreeable to after care plan at [facility] for continued symptom and medication management. Patient reported tolerating Prozac and Abilify well and denied untoward medication effects. Patient agreeable to continue taking them. PCP appointment was scheduled with RUSSEL Malone on , 01/23/17 at 10: 20AM. Outpatient podiatry appointment was scheduled for patient with Dr. Kelton Silva on 01/22/17 at 9:45AM. Patient informed of scheduled appointments. PLAN: 1. Continue monitoring the patient on unit for safety and mood. 2. Continue current medications. 3. HOD consult requested to evaluate psoriasis and tx management. 4. Discharge likely tomorrow with [facility] f/u.
--- NOTE | 2017-01-14 09:12 | SOCIAL WORKER PROG NOTE PSYCH ---
Social Work Progress Note Progress Note Praful, agrees to referral for ongoing support and med management to [facility]< an appointment is set up for 01/16/17 at 12:45pm Pt is organized, and adjusting to our milieu. He denies si/hi/ah/vh. He understands his relationship with his sibling, and states "she can be the sweetest person, but so many things make her zurita, and I have to manage myself". Pt prepared for discharging tomorrow. * Family attitudes * Community resource contacts and liaison with other clinicians/agencies
[2017-01-14 12:32] VITALS: BP 139/66
--- NOTE | 2017-01-14 12:44 | NUR ---
PT IS OUT IN COMMUNITY INTERACTING AT TIMES WITH STAFF AND PEERS. PT ISOLATES TO SELF AT TIMES. PT IS COMPLIANT AND COOPERATIVE WITH UNIT RULES. PT IS ATTENDING GROUPS. PT MOOD IS STABLE, SLIGHTLY CONSTRICTED BUT MOSTLY FULL RANGE. PT DENIES SI THOUGHTS
[2017-01-14 15:54] VITALS: BP 136/64
[2017-01-14 19:34] VITALS: BP 153/78
--- NOTE | 2017-01-14 21:59 | NUR ---
Pt is out in the community mood is stable affect is in full range. Interacts appropriately with he's peers. No behavioral issues, compliant and cooperative with the staff. Vital signs are stable and appetite is good. Will continue to monitor the pt overnight.
--- NOTE | 2017-01-15 05:33 | NUR ---
PT APPEARED TO SLEEP.
[2017-01-15 07:34] VITALS: BP 132/93
[2017-01-15 08:01] VITALS: BP 132/93
--- NOTE | 2017-01-15 10:28 | DISCHARGE SUMMARY REPORT-PSYCH ---
Visit Information Visit Dates/Diagnosis' Admission Date: 01/12/17 Discharge Date: 01/15/17 Reason for Admission: Suicidal ideation. Psy Discharge Primary Diag: MDD, recurrent, severe Psy Discharge Secondary Diag: PTSD; HTN, Hyperlipidemia; Psoriasis; Psoriatic arthritis. Hospital Course Significant Lab Findings: Lab Cholesterol/HDL Ratio 5 % H 01/13/17 0650 Glucose 138 mg/dL H 01/13/17 0650 HDL Cholesterol 33 mg/dL L 01/13/17 0650 01/13/17 EKG: Sinus rhythm with rate of 89. Borderline inferior Q waves. GA: 168; QRSD: 88; QT: 368; QTc: 448; P: 41; QRS: 27; T: 55. Course Complications: None. Consultations: The patient was seen for admission history and physical by nuclear monitoring technician Dr. Antonino Colvin. Please see his note for additional information. The patient was consulted by gristmill operator Dr. Kelton Silva on 01/13/17 for discoloration and pain to the nail bed of his right great toe. Avulsion to right great toe was completed by Dr. Silva. Patient to follow-up outpatient with Dr. Silva on 01/22/17 at 9:45AM. Allergies: Uncoded Allergies: DUST MITE (UNKNOWN 01/12/17) Hospital Course/TX Response: The patient was monitored on the unit for safety, suicidal ideation and mood. He participated in multimodal treatments on the unit. Prozac 10mg was started daily for anxiety and depression. Abilify 5mg was started nightly for ruminative thoughts and mood stabilization. Outpatient medical medications were restarted: Atorvastatin 40mg nightly for hyperlipidemia, Lisinopril 10mg daily for hypertension, Hydrochlorothiazide 12.5mg daily for hypertension, Diclofenac 75mg twice daily for pain, Clobetasol topical twice daily for psorisasis, and Hydrocortisone topical twice daily for psoriasis. The patient tolerated all medications well and denied untoward medication effects. During the hospital course, the patient's mood and affect improved. Suicidal ideation remitted. The patient was in favor of discharge plan to follow-up with [facility] for further management of psychiatric symptoms and medications. Ashley Meek LCSW, spoke to the patient's sister who was also in favor of the patient's discharge and discharge plan. On the date of discharge, 01/15/17, the patient presented alert and oriented to person, place, time and situation. Eye contact was appropriate. Speech was moderate in rate, tone and volume. Affect was calm and constricted. He had no complaints. He reported his mood as "fine." He reported depression of 0/10 (10 being the worst) and anxiety of 0/10 (10 being the worst). He denied feeling hopeless, helpless, worthless, and guilty. He denied passive and active suicidal ideation, plans and intent. He denied homicidal ideation. He identified protective factors of "my sister" and "my mother." He stated and also believed he will not harm himself or others. He reported his appetite and sleep were good. He reported his energy level was good. There were no symptoms of hypomania /yobani. There was no evidence of paranoia or rosita delusions. He denied auditory and visual hallucinations. Thought process was organized and goal-directed. Thought content was appropriate. Cognition was grossly intact. He reported tolerating all medications well and denied untoward medication effects. He reported feeling safe and ready for discharge. He verbalized understanding of scheduled after care appointments with PCP RUSSEL Mistry, gristmill operator Dr. Silva, and at [facility]. Discharge HBIPS - Tobacco Use Treatment Offered Post DC Medications Offered: NA-No Tob Use >30 days Post DC Tobacco Treatment Plan: NA-No Tobacco use >30days - EtOH/Drug Use D/O Treatment Offered Post DC Medications Offered: NA-No EtOH/Drug Use D/O Post DC EtOH/SubAbuse TX Plan: NA-No EtOH/Drug Use D/O Metabolic Screening - Screen if on a Neuroleptic Medication - Metabolic screening should include: - Blood Pressure, BMI, Glucose or Hgb A1c, & a - Lipid profile from within the past 365 days. Metabolic Screening () Not Applicable, patient not on a neuroleptic. OR ([X]) Patient on a neuroleptic(s) . Enter below results for Glucose or Hemoglobin A1C, and lipid panel if obtained during the last 365 days. BMI: 37.000 Blood Pressure: 132/93 Laboratory Results (If applicable): Lab Cholesterol 180 MG/DL 01/13/17 0650 Cholesterol/HDL Ratio 5 % H 01/13/17 0650 HDL Cholesterol 33 mg/dL L 01/13/17 0650 LDL Cholesterol, Calc 119 mg/dL 01/13/17 0650 Triglycerides 141 mg/dL 01/13/17 0650 Glucose 138 mg/dL H 01/13/17 0650 Discharge Instructions General Discharge Information Discharge Medications: Discharge Medications- (Dose, route, freq, indication): HOME MEDICATION LIST START taking these NEW Home Medications: Atorvastatin Calcium Dose: ORAL, 5 PM for High Qty: 14 Called-in (Atorvastatin 1 Tablet cholesterol Refills: 0 Calcium) 40 MG Take 1 tablet by mouth TABLET every night. Last Taken:01/14/17 Time:1700 Lisinopril Dose: ORAL, DAILY @8 AM for Qty: 14 Called-in (Lisinopril) 10 MG 10 Milligram HIGH BLOOD PRESSURE Refills: 0 TABLET Take 1 tablet by mouth daily. Last Taken:01/15/17 Time:0800 Diclofenac Sodium Dose: ORAL, for Pain Qty: 28 Called-in (Diclofenac Sodium) 75 Milligram Take 1 tablet by mouth Refills: 0 75 MG TABLET.DR twice daily. Last Taken:01/15/17 Time:0800 Fluoxetine HCl Dose: ORAL, DAILY for Qty: 14 Called-in (Fluoxetine HCl) 10 10 Milligram depression/anxiety Refills: 0 MG CAPSULE Take 1 capsule by mouth every morning. Last Taken:01/15/17 Time:0800 Aripiprazole Dose: ORAL1999 for mood Qty: 14 Called-in (Abilify) 5 MG 5 Milligram stability/clear thoughts Refills: 0 TABLET Take 1 tablet by mouth every night. Last Taken:01/14/17 Time:1950 Hydrochlorothiazide Dose: ORAL, DAILY @8 AM for Qty: 14 Called-in (Hydrochlorothiazide) 12.5 HIGH BLOOD PRESSURE Refills: 0 12.5 MG CAPSULE Milligram Take 1 capsule by mouth daily. Last Taken:01/15/17 Time:0800 Fluticasone Dose: In the nose, DAILY @8 AM Qty: 1 Called-in Propionate 2 [place] for allergies Refills: 0 (Fluticasone Take 2 sprays Propionate) 50 MCG/ insufflation daily. ACTUATION SPRAY.SUSP Last Taken:01/15/17 Time:0800 Clobetasol Dose: On the skin, TWICE DAILY Qty: 1 Called-in Propionate 1 Application for rash Refills: 0 (Temovate) 0.05 % apply to affected area(s) CREAM..G. Last Taken:01/15/17 Time:0800 Hydrocortisone Dose: On the skin, TWICE DAILY Qty: 1 Called-in (Hydrocortisone) 1 % 1 Application for rash Refills: 0 CREAM..G. APPLY BID TO RASH (PSORIASIS) Last Taken:01/15/17 Time:0800 Psyllium Hydrophy Dose: ORAL, Every night for Qty: 14 None Sugar Free 1 Packet bowel support Refills: 0 (Metamucil Fiber Singles Packet) 3.4 GRAM POWD.PACK All discharge prescriptions were called into below pharmacy, today. Patient was advised to purchase Metamucil 3.4G powder OTC and to take as indicated above. Patient verbalized understanding. Your Preferred Pharmacy [facility]/pharmacy #[id number] [place] [address] Multiple Neuroleptics: ([X]) Not Applicable OR Document below three failed attempts at monotherapy, or a plan to taper to monotherapy, or augmentation of Clozapine. () Patient's Diet: Regular. Patient's Activity: No restrictions. DC Disposition: Patient to return to home. Recommendations: The patient was advised to please take his medications as prescribed. He was advised to follow-up with scheduled outpatient appointments (see in referral section below). He was advised that in the event of an emergency to call 911/go to nearest emergency department. The patient verbalized understanding of all instructions. Referred To: [address] [id number] (t)[phone] *Appointment scheduled with PCP RUSSEL Morales, on , 01/23/17 at 10: 20AM. Kelton Inman [address] [place] [address] *Appointment scheduled on 01/22/17 at 9:45AM with gristmill operator Dr. Kelton Silva. [facility] [address] [place] [id number] (t)[phone] *IOP intake scheduled on , 01/16/17 at 12:45PM. Copies To: Dr. Kelton Silva; [facility] IOP; RUSSEL Morales
--- NOTE | 2017-01-15 10:31 | CP SOUTH PROGRESS NOTE PSYCH ---
Psych (Inpt) Progress Note Progress Note Include the following elements, when applicable: Involvement in the active treatment of the patient with behavioral observations of the patient and the patient's response to the treatment. Review of the ongoing treatment process in the context of the treatment plan. Indication of how multi-disciplinary staff members are carrying out the treatment plan. Plans for future interventions and recommendations for revision of the treatment plan. Liaison with other physicians/providers. Progress Note: [I discussed this patient's progress to date, current mental status, treatment process in the context of the treatment plan, and discharge planning with staff/ team in the daily morning inpatient team meeting. I also met with the patient myself in individual session.] SUBJECTIVE: "My mood is fine, no depression, no anxiety!" OBJECTIVE: Current Medications Sig/[place] Start time Last Medication Dose Route Stop Time Status Admin Aripiprazole 5 MG 01/13 PO 1950 Atorvastatin Calcium 40 MG 01/13 1700 AC 01/14 PO 1702 Clobetasol Propionate 1 SUZY BID 01/14 2200 AC 01/15 TOP 0802 Diclofenac Sodium 75 MG 799,01/14 AC 01/15 PO 0801 Fluoxetine HCl 10 MG DAILY 01/12 1338 AC 01/15 PO 0801 Fluticasone 2 SPRAY 01/14 1315 AC 01/15 Propionate WIL 0801 Hydrochlorothiazide 12.5 MG 01/14 0800 AC 01/15 PO 0801 Hydrocortisone 1 SUZY BID 01/14 2200 AC TOP Hydroxyzine HCl 25 MG Q6PRN PRN 01/12 1045 DC PO Lisinopril 10 MG 01/14 0800 AC 01/15 PO 0801 Psyllium Hydrophilic 1 PAC QPM 01/14 2200 AC 01/14 Mucilloid PO 220 Trazodone HCl 50 MG AT BEDTIME NEED.. 01/12 2200 DC PO Vital Signs Date Time Temp Pulse Resp B/P Pulse O2 O2 Flow FiO2 Ox Delivery Rate 01/15 0801 94 132/93 01/15 0734 97.7 94 132/93 01/14 1934 98.7 80 153/78 01/14 1554 98 136/64 01/14 1232 94 139/66 ASSESSMENT: Chart, progress notes, VS, labs, and medication list were reviewed. Met with the patient today, together with Ashley Meek LCSW, on the date of discharge. He presented alert and oriented to person, place, time and situation. Eye contact was appropriate. Speech was moderate in rate, tone and volume. Affect was calm and constricted. He had no complaints. He reported his mood as "fine." He reported depression of 0/10 (10 being the worst) and anxiety of 0/10 (10 being the worst). He denied feeling hopeless, helpless, worthless, and guilty. He denied passive and active suicidal ideation, plans and intent. He denied homicidal ideation. He identified protective factors of "my sister" and "my mother." He stated and also believed he will not harm himself or others. He reported his appetite and sleep were good. He reported his energy level was good. There were no symptoms of hypomania/yobani. There was no evidence of paranoia or rosita delusions. He denied auditory and visual hallucinations. Thought process was organized and goal-directed. Thought content was appropriate. Cognition was grossly intact. He reported tolerating all medications well and denied untoward medication effects. He reported feeling safe and ready for discharge. He verbalized understanding of scheduled after care appointments with PCP Carolyn Hinton, grocery store courtesy clerk Dr. Silva, and at [facility]. PLAN: 1. Discharge today to home. Sister to pick patient up from hospital post- discharge. 2. F/u with PCP RUSSEL Morales on 01/23/17 at 10:20AM for management of HTN, hyperlipidemia, and psoriasis/psoriatic arthritis 3. F/u with grocery store courtesy clerk Dr. Kelton Silva on 01/22/17 at 9:45AM s/p avulsion of right great toe. 4. F/u with [facility] for intake on 01/16/17 at 12:45PM. 5. In the event of an emergency call 911/go to nearest emergency department. Patient verbalized understanding of instruction. 6. All discharge prescriptions werecalled into [facility] [place] today. Patient verbalized understanding.
--- NOTE | 2017-01-15 10:39 | NUR ---
PT IS SCHEDULED FOR D/C TODAY TO [facility]. HE AGREES TO FOLLOW UP WITH [facility]. HE REPORTS AND DEMONSTRATES IMPROVEMENT IN HIS MOOD AND ABILITY TO FUNCTION. HE DENIES ANY THOUGHTS OF SUICIDE OR SELF HARM. HE VERBALIZES A GOOD UNDERSTANDING OF HIS MED REGIME AND TREATMENT PLAN. PT IS GIVEN EDUCATION R/T MANAGING DEPRESSION AND ON PREVENTING SUICIDE
--- NOTE | 2017-01-15 10:43 | SOCIAL WORKER PROG NOTE PSYCH ---
Social Work Progress Note Progress Note Patient to discharge the hospital today. Patient denies SI/HI/AH/VH at present and is looking forward to returning home today. Patient is forward thinking and able to contract for safety at this time. He has agreed to attend IOP with and has intake scheduled tomorrow at12:45pm. Patients sister will be picking him up today from the hospital and she is also in agreement with discharge plan. Patient identifeis no barriers to discharge the hospital today.
[2017-01-15] MEDS ORDERED: ATORVASTATIN CA40 M1 PO (10:54)
[2017-01-15] MEDS ORDERED: LISINOPRIL10 M1 PO (10:54)
[2017-01-15] MEDS ORDERED: FLUOXETINE HCL10 M2 PO (10:55)
[2017-01-15] MEDS ORDERED: DICLOFENAC SODI75 M2 PO (10:55)
[2017-01-15] MEDS ORDERED: ABILIFY5 M1 PO (10:56)
[2017-01-15] MEDS ORDERED: HYDROCHLOROTH12.5 M3 PO (10:56)
[2017-01-15] MEDS ORDERED: FLUTICASONE PRO16 GM NAS (10:57)
[2017-01-15] MEDS ORDERED: TEMOVATE30 GM TOP (10:58)
[2017-01-15] MEDS ORDERED: HYDROCORTISO453.6 G1 TOP (10:59)
[2017-01-15] MEDS ORDERED: METAMUCIL FIBE3.4 GM PO (11:35)
== END 2017-01-15 11:39 | DRG 751 ==
LOC: ENRESERVDT → ENRESERVTM → ERH 21:30 → CP SOUTH 01-12 10:02 → ENPENDDIS 01-12 10:02 → ERHI 01-12 10:02 → CP SOUTH 01-12 11:04
PROVIDERS: Student in an Organized Health Care Education/Training Program; ADMIT Psychiatry & Neurology Psychiatry
DX: F33.2 Major depressive disorder, recurrent severe without psychotic features (principal); F43.10 Post-traumatic stress disorder, unspecified; I10 Essential (primary) hypertension; E78.5 Hyperlipidemia, unspecified; L40.50 Arthropathic psoriasis, unspecified
CPT/HCPCS: 36415; 80307; 93005; 93010

== ENCOUNTER → 2017-06-06 | Day surgery (SDC) | payer OTHER ==
[~2017-06-06] VITALS: Ht 175.3 cm; Wt 100.2 kg
[~2017-06-06] MED LIST: ABILIFY5 M1 PO; ATORVASTATIN CA40 M1 PO; CLARITIN10 M1 PO; DICLOFENAC SODI75 M2 PO; FLUOXETINE HCL10 M2 PO; FLUTICASONE PRO16 GM NAS; FOLIC ACID1 M1 PO; HYDROCHLOROTH12.5 M3 PO; HYDROCORTISO453.6 G1 TOP; LISINOPRIL-HCT1 EAC2 PO; LISINOPRIL10 M1 PO; METAMUCIL FIBE3.4 GM PO; METFORMIN HCL500 M4 PO; METHOTREXATE2.5 M2 PO; MOBIC7.5 M1 PO; PROZAC20 M2 PO; SIMVASTATIN40 M1 PO; TEMOVATE30 GM TOP
--- NOTE | 2017-06-06 20:13 | Operative Report ---
Operative/Inv Procedure Report Surgery Date: 06/06/17 Name of Procedure: Laparoscopic preperitoneal mesh repair of left inguinal hernia, and open mesh repair of umbilical hernia, both reducible Pre-Operative Diagnosis: Left inguinal hernia umbilical hernia both reducible Post-Operative Diagnosis: Same, inguinal hernia was direct Estimated Blood Loss: scant Surgeon/Patient Services Clerk: FELIPE TYLER,MAGDY GOODE Anesthesia: general endotracheal tube Operative/Procedure Note Note: Patient was positioned supine on the table. After successful induction of general anesthesia the inguinal and surrounding areas were clipped prepped and draped in the usual sterile fashion. After injection of local anesthetic at the bottom of the umbilicus off the midline to the left, a 1 1/2 cm curved incision was made with a 15 blade, then deepened through Soham's fascia, sweeping off the rectus sheath. A horizontal 1-1/2 cm incision was made between the fibers, elevating these edges with 0 Vicryl stay sutures. Then retracting the muscle laterally, clearing off the posterior rectus sheath, this space is developed down the midline to the pubis sequentially, with an S retractor, a peanut dissector, then the balloon-camera device, inflating it 30-40 pumps while watching how it opens up the space, keeping the epigastrics up. The balloon is then replaced with a 10 mm Aaron trocar, inserted, shortened, and secured with the stay sutures, gas turned on to 12 not 15 mm. Then two 5 mm trochars are inserted in the midline just below the camera, spaced by approximately 3 cm. Using mostly blunt dissection with peanuts to define the anatomy, first Tho's ligament is swept off medially, checking the medial spaces, direct and femoral. There was an obvious large direct defect no indirect. Then briefly skipping over the area of the iliac fat pad, we developed the iliopubic tract out laterally to the iliac crest. Then we returned to the area of the fat pad where the hernia sac was tracking medially, this was reduced out of the defect. The cord structures form a triangle with the vas approaching medially and the main vessels approaching laterally, with the apex at the deep ring. There was some preperitoneal fat up inside in front that was dragged down and out, helping identify the lip of peritoneum. The cord is also from the underlying iliac fat. A Parietex sided mesh with the suture, is marked and stuffed down the camera trocar, then unfurled in a systematic fashion, first with the smaller leaflet passing behind the cord structures, until the flap covers the epigastrics, covering the deep ring, then the larger leaflet is released from the suture, double-covering the smaller one, but also extends laterally out to the iliac crest, medially over Tho's ligament, and superiorly towards the camera. There is a third part of the mesh, that covers the iliac fat pad like a skirt. The mesh was adjusted back and forth so that the keyhole is centered around the cord, lays flat and the edges are not curling. A trial run of letting the gas escape a little bit to see how the mesh would lay as the peritoneum comes back down is done, then when we're satisfied, we let rest of the gas escape, pulling out the instruments and trochars. The fascia is closed with a [id number] 0 Vicryl suture, tying the stay sutures on top. Then we closed the 3 skin incisions with interrupted 4-0 Monocryl, 3 for the umbilical, one each for the smaller ones, followed by Mastisol, Steri-Strips and Band-Aids. Next the umbilical hernia was approached, an incision was planned overlying the hernia, on the top of the umbilical skin from 9:00 to 1:00, this spot was infiltrated with local anesthetic and then made with a 15 blade. This was deepened with cautery and the herniated fat and overlying sac were dissected circumferentially off the fascia, defining the true edges of the defect. It was oriented horizontally, we then inserted the Ventralex coated 4.3 centimeter mesh underneath the defect using the tails to center it and then closed the defect with interrupted 2-0 Maxon sutures in this case 4, incorporating the mesh with each bite. The subcutaneous layer and Soham's fascia were reapproximated to cover. The incision was irrigated and then the skin was reapproximated with a running subcuticular 4-0 Biosyn, followed by Mastisol, Steri-Strips Telfa Tegaderm. EBL minimal lap and sponge counts correct wound expectancy clean IV fluids crystalloid complications none patient tolerated the procedure well was awakened extubated returned to the recovery room in satisfactory condition. Overall estimated blood loss was minimal, lap and sponge counts were correct, wound expectancy was clean, IV fluids crystalloid, complications none, patient tolerated the procedure well, did not significantly mckeon during extubation and was returned to the recovery room in satisfactory condition.
== END ==
LOC: STS 04:18
DX: K40.90 Unilateral inguinal hernia, without obstruction or gangrene, not specified as recurrent (principal); K42.9 Umbilical hernia without obstruction or gangrene; L40.50 Arthropathic psoriasis, unspecified; I10 Essential (primary) hypertension; E11.9 Type 2 diabetes mellitus without complications; Z79.84 Long term (current) use of oral hypoglycemic drugs
CPT/HCPCS: C1781; J0131; J0690; J1100; J2250; J2405; J3250